=== PATIENT | female | born 1990 | race Caucasian/White ===

== ENCOUNTER 2020-06-16 11:53 | Emergency (ER) | payer SELFPAY ==
[~2020-06-16] VITALS: Ht 160 cm; Wt 76.2 kg
[2020-06-16 11:57] VITALS: BP 125/80; Ht 160 cm; Wt 76.2 kg
== END 2020-06-16 12:20 | disposition home or self-care (01) ==
LOC: ED 11:53
DX: J45.909 Unspecified asthma, uncomplicated (principal); Z20.828 Contact with and (suspected) exposure to other viral communicable diseases
CPT/HCPCS: U0003-CS